=== PATIENT | male | born 1995 | race Hispanic/Latino ===

== ENCOUNTER 2018-11-29 04:38 | Emergency (ER) | payer BC ==
[2018-11-29 04:41] VITALS: BMI 23.4
[2018-11-29 04:43] VITALS: O2SAT 100
--- NOTE | 2018-11-29 05:20 | ED PDOC ---
HPI: Psych/Substance Abuse Chief Complaint (Provider): alcohol ingestion Additional Complaint(s): 23 y/o M with no significant PMH who was BIBA to ED after being found asleep on park bench. Patient admits to drinking heavily tonight but does not recall how he got to park bench. Is having some nausea but denies dizziness, head trauma, neck pain or MCKEON. No SI/HI. <Leela Juárez - Last Filed: 11/29/18 07:03> <Aravind Monge - Last Filed: 11/29/18 08:01> Time Seen by Provider: 11/29/18 04:52 Chief Complaint (Nursing): Alcohol Ingestion Past Medical History Reviewed: Historical Data, Nursing Documentation, Vital Signs Vital Signs: Last Vital Signs Temp 98.7 F 11/29/18 04:42 Pulse 79 11/29/18 04:42 Resp 20 11/29/18 04:42 BP 156/99 H 11/29/18 04:42 Pulse Ox 100 11/29/18 04:42 - Medical History PMH: No Chronic Diseases - Family History Family History: States: Unknown Family Hx <Leela Juárez - Last Filed: 11/29/18 07:03> Vital Signs: Last Vital Signs Temp 98.7 F 11/29/18 04:42 Pulse 79 11/29/18 04:42 Resp 20 11/29/18 04:42 BP 156/99 H 11/29/18 04:42 Pulse Ox 100 11/29/18 07:05 <Aravind Monge - Last Filed: 11/29/18 08:01> - Allergies Allergies/Adverse Reactions: Allergies Allergy/AdvReac Type Severity Reaction Status Date / Time No Known Allergies Allergy Verified 11/29/18 04:49 Review of Systems Gastrointestinal: Positive for: Nausea. Negative for: Vomiting, Abdominal Pain, Diarrhea Neurological: Negative for: Weakness, Dizziness Psych: Negative for: Suicidal ideation <Leela Juárez - Last Filed: 11/29/18 07:03> Physical Exam - Reviewed Nursing Documentation Reviewed: Yes Vital Signs Reviewed: Yes - Physical Exam Appears: Positive for: Non-toxic Eye Exam: Positive for: Conjunctival injection (b/l) Cardiovascular/Chest: Positive for: Regular Rate, Rhythm Respiratory: Positive for: Normal Breath Sounds Neurologic/Psych: Positive for: Alert, Gait (steady). Negative for: Oriented (disoriented to time, slurred speech) <Leela Juárez - Last Filed: 11/29/18 07:03> - ECG O2 Sat by Pulse Oximetry: 100 <Leela Juárez - Last Filed: 11/29/18 07:03> Medical Decision Making Medical Decision Making: accucheck: 99 RN spoke with patient's father who will be coming to pick patient up and escort him home. Patient endorsed to Dr. Monge pending clinical sobriety or accompaniment home with assistance. <MarquitaLeela - Last Filed: 11/29/18 07:03> Medical Decision Makin Patient discharged in good condition into custody of father <Aravind Monge - Last Filed: 11/29/18 08:01> Disposition - Patient ED Disposition Is Patient to be Admitted: Transfer of Care (Dr. Monge) - Disposition Disposition: Transfer of Care Disposition Time: 07:05 <XavierCesarYork,Leela - Last Filed: 11/29/18 07:03> - Patient ED Disposition Is Patient to be Admitted: No - Disposition Disposition: Routine/Home Disposition Time: 08:00 <Aravind Monge - Last Filed: 11/29/18 08:01> - Clinical Impression Clinical Impression: Alcohol intoxication - Disposition Condition: GOOD Instructions: Alcohol Use - When Is Drinking a Problem? Forms: [employer] ([place]ovenian)
[2018-11-29 08:09] VITALS: BP 143/94; PULSE 83; RESP 18; TEMP 98
== END 2018-11-29 08:10 | disposition home or self-care (01) ==
LOC: H.ER 04:38
DX: F10.129 Alcohol abuse with intoxication, unspecified (principal)